=== PATIENT | male | born 1970 | race Asian ===

== ENCOUNTER → 2018-04-22 | Outpatient (CLI) | payer BC ==
[2018-04-22 15:08] LABS: ABSOLUTE BASOPHILS # (AUTO) 0.1 10^3/uL (0.0-0.2); ABSOLUTE EOSINOPHILS # (AUTO) 0.2 10^3/uL (0.0-0.6); ABSOLUTE LYMPHOCYTES (AUTO) 1.7 10^3/uL (0.5-4.7); ABSOLUTE MONOCYTES (AUTO) 0.4 10^3/uL (0.1-1.4); ABSOLUTE NEUT (AUTO) 3.5 10^3/uL (1.7-8.2); BASOPHILS % (AUTO) 0.8 % (0-2); EOSINOPHILS % (AUTO) 3.8 % (0-6); HEMATOCRIT 45.8 % (37.9-51.0); LYMPHOCYTES % (AUTO) 29.3 % (13-45); MEAN CORPUSCULAR HEMOGLOBIN 28.9 pg (27.0-33.4); MEAN CORPUSCULAR HGB CONC 34.9 g/dL (32.0-36.0); MEAN CORPUSCULAR VOLUME 83 fl (80-97); MONOCYTES % (AUTO) 7.4 % (3-13); PLATELET COUNT 310 10^3/uL (150-450); RED BLOOD COUNT 5.52 10^6/uL (4.35-5.55); RED CELL DISTRIBUTION WIDTH 13.2 % (11.5-14.0); SEGMENTED NEUTROPHILS % (AUTO) 58.7 % (42-78); TOTAL CELLS COUNTED % (AUTO) 100 %; WHITE BLOOD COUNT 5.9 10^3/uL (4.0-10.5)
[2018-04-22 15:30] LABS: ALANINE AMINOTRANSFERASE 55 U/L (21-72); ALKALINE PHOSPHATASE 46 U/L (38-126); ANION GAP 14 (5-19); ASPARTATE AMINO TRANSFERASE 30 U/L (17-59); BILIRUBIN,DIRECT 0.4 mg/dL (0.0-0.4); BLOOD UREA NITROGEN 18 mg/dL (7-20); CALCIUM 9.8 mg/dL (8.4-10.2); CARBON DIOXIDE 24 mmol/L (22-30); CHLORIDE 104 mmol/L (98-107); GLUCOSE 97 mg/dL (75-110); POTASSIUM 4.6 mmol/L (3.6-5.0); SODIUM 141.8 mmol/L (137-145); TOTAL PROTEIN 8.6 g/dL (6.3-8.2); TRIGLYCERIDES 177 mg/dL (<150)
[2018-04-22 15:41] LABS: DIRECT LDL 128 mg/dL (<100)
[2018-04-22 15:42] LABS: VLDL CHOLESTEROL 35.4 mg/dL (10-31)
== END ==
LOC: OD 14:07
PROVIDERS: ATTEND Family Medicine Geriatric Medicine
DX: Z00.00 Encounter for general adult medical examination without abnormal findings (principal); E66.3 Overweight
CPT/HCPCS: 36415; 80053; 80061; 84443; 85025